=== PATIENT | female | born 1970 | race Caucasian/White ===

== ENCOUNTER 2021-10-22 01:56 | Day surgery (SDC) | payer BC, SELFPAY ==
[2021-10-06 10:29] VITALS: BMI 32.3
[2021-10-22 08:41] VITALS: BP 126/83; PULSE 97; RESP 18; TEMP 36.3; O2SAT 100
[2021-10-22] MEDS: LACTATED RINGERS 1,000 ML 150 ML IV CONT (09:06)
--- NOTE | 2021-10-22 09:20 | WPDHPUPDATE1 ---
History and Physical Update Update Date/Time: 10/22/21 09:20 Patient with vague abdominal ache that has been present for 1 year despite PPI therapy. Also with ongoing loose stools. Plan for fiber supplementation such as FiberCon 2 tabs p.o. b.i.d.. Colonoscopy an EGD will be performed to evaluate. History and Physical has been reviewed, including an updated exam of the patient. There are NO changes in the patient's condition. Risks, benefits, and alternatives have been discussed and questions answered. Patient agrees to proceed with procedure.
--- NOTE | 2021-10-22 09:32 | WPDANESEPPF ---
Anes - Initial Pre Proc Eval Procedure: Operation Date: 10/22/21 10:00 Proposed Procedures p Esophagogastroduodenoscopy & Screening Colonoscopy - Jose Lord MD Date/Time: 10/22/21 09:32 Surgeon: Jose Lord MD Pre Op Diagnosis: epigastric pain, neoplasm screening Patient Data Age: 51 Gender: F Height: 1.52 m Weight: 74 kg Last Vital Signs Temp 97.3 F L 10/22/21 08:41 Pulse 97 10/22/21 08:41 Resp 18 10/22/21 08:41 BP 126/83 10/22/21 08:41 Pulse Ox 100 10/22/21 08:41 O2 Del Method Room Air 10/22/21 08:41 Allergies Allergy/AdvReac Type Severity Reaction Status Date / Time No Known Allergies Allergy Verified 10/22/21 08:40 Home Medications Medication Instructions Recorded Confirmed Type albuterol sulfate 90 mcg/actuation 2 puff inhalation Q4H PRN 09/24/21 10/06/21 History aerosol inhaler Shortness Of Breath Or Wheezing fluticasone furoate 200 1 inh inhalation DAILY 09/24/21 10/06/21 History mcg-vilanterol 25 mcg/dose inhalation powder (Breo Ellipta) levothyroxine 50 mcg tablet 50 mcg PO DAILY 09/24/21 10/06/21 History medroxyprogesterone 10 mg tablet See Rx Instructions PO DAILY 09/24/21 10/06/21 History pantoprazole 40 mg tablet,delayed 40 mg PO QAM 09/24/21 10/06/21 History release dicyclomine 10 mg capsule 10 mg PO .Every 6 hours PRN 09/29/21 10/06/21 Rx abdominal pain #90 caps Patient hx anesthesia problems: none Family hx anesthesia problems: none Results Review: All pre-operative results and documents have been reviewed as part of the pre-operative evaluation. [facility] Past Medical History Medical History (Updated 09/29/21 @ 10:15 by Haley Jade APRN) Chronic diarrhea Nausea Surgical History Surgical History Hx of section Family History Family History Father Hypothyroid Mother Hypertension Grandparent Diabetes mellitus Social History Social History Smoking status: Never smoker Second hand tobacco smoke exposure: No Alcohol intake: current Alcohol use details: rare occasional Substance use: never Substance use type: does not use Living arrangements: with family Gender identity (if verbalized by the patient): Female Sexual Orientation (if Verbalized by the Patient): Straight or Heterosexual Spiritual care concerns: No Agree to blood products: Yes Anes - Eval Final PreProcedure Day of Procedure 10/22/21 09:32 Patient weight: overweight Heart: regular rate and rhythm Lungs: clear to auscultation Airway: Mallampati scale class II Neurological: alert and oriented Last oral intake: >/= 8 hours ASA classification: II Emergent: no Anesthetic plan: proceed Anesthesia type and monitoring: general GIVS and standard monitoring Results Review: All pre-operative results and documents have been reviewed as part of the pre-operative evaluation. Informed Consent: The patient's anesthetic plan and its attendant risks and benefits were discussed with the patient/family/POA. Questions were solicited and answers provided to the satisfaction of the patient/family/POA.
--- NOTE | 2021-10-22 10:04 | SUR.OPER ---
EGD end 956 Colonoscopy start 1003
[2021-10-22 10:17] VITALS: BP 107/58; PULSE 90; RESP 21; O2SAT 99
[2021-10-22 10:27] VITALS: BP 129/72; PULSE 77; RESP 24; O2SAT 100
[2021-10-22 10:37] VITALS: BP 121/84; PULSE 70; RESP 18; O2SAT 99
== END 2021-10-22 10:43 | disposition home or self-care (01) ==
PROVIDERS: PCP Family Medicine Adolescent Medicine; Visit Provider Internal Medicine Gastroenterology
PROC: 0DJ08ZZ Inspection of Upper Intestinal Tract, Via Natural or Artificial Opening Endoscopic (ICD-10-PCS; CPT 43235; principal; 2021-10-22 10:00)
DX: Z12.11 Encounter for screening for malignant neoplasm of colon (principal); R19.4 Change in bowel habit; K64.8 Other hemorrhoids; E06.3 Autoimmune thyroiditis; J45.909 Unspecified asthma, uncomplicated; R10.13 Epigastric pain; E03.9 Hypothyroidism, unspecified; Z79.51 Long term (current) use of inhaled steroids; K52.9 Noninfective gastroenteritis and colitis, unspecified; R11.0 Nausea; R79.89 Other specified abnormal findings of blood chemistry; E66.9 Obesity, unspecified; Z68.31 Body mass index [BMI] 31.0-31.9, adult
CPT/HCPCS: 43239; 45380; 87081; 88305; J2704; J7120

== ENCOUNTER → 2022-06-10 12:49 | Outpatient (CLI) | payer BC, SELFPAY ==
--- NOTE | ~2022-06-10 | CT_ITS ---
EXAMINATION: CTA chest PE protocol DATE: 06/10/2022 13:32 INDICATION: Shortness of breath, tachycardia, pleuritic chest pain TECHNIQUE: Computed tomography angiography (CTA) of the chest was performed with 100 mL Omnipaque-350 intravenous contrast timed to evaluate the pulmonary arteries. Coronal maximum intensity projection 3D-reconstructions were created by the technologist. Automated exposure control and iterative reconst ruction technique were employed. Exam dose: 584.30 mGy-cm total exam DLP. COMPARISON: None. FINDINGS: There is diagnostic contrast enhancement of the pulmonary arteries and no evidence of pulmo nary embolism. No thoracic aortic aneurysm or dissection. Normal heart size. No pericardial or pleural effusion. There is extensive patchy consolidation of the right upper lobe particularly the apical and posterior portions, with extensive air bronchograms. There are patchy bilateral lower lobe infiltrates, right greater than left. Normal morphology of the adrenal glands. Small sliding hiatal hernia. IMPRESSION: No evidence of pulmonary embolism Prominent right upper lobe apical and posterior consolidation and patchy bilateral lower lobe infiltr ates, suggesting bilateral pneumonia Reviewed, dictated and finalized at [facility]. Reviewed, dictated and finalized at [facility]. IMPRESSION: No evidence of pulmonary embolism Prominent right upper lobe apical and posterior consolidation and patchy bilate ral lower lobe infiltrates, suggesting bilateral pneumonia
== END ==
PROVIDERS: PCP Family Medicine Adolescent Medicine; Visit Provider Physician Assistant
DX: R07.81 Pleurodynia (principal); R00.0 Tachycardia, unspecified; R06.02 Shortness of breath; R91.8 Other nonspecific abnormal finding of lung field
CPT/HCPCS: 71275; Q9967

== ENCOUNTER 2024-03-03 07:42 | Outpatient (CLI) | payer BC, SELFPAY ==
--- NOTE | ~2024-03-03 | US_ITS ---
EXAMINATION: US abdomen limited DATE: 03/03/2024 08:11 INDICATION: Abnormal levels of other serum enzymes. TECHNIQUE: Multiple grayscale and Doppler ultrasound images of the abdomen were obtained. COMPARISON: Chest CT 06/10/2022 FINDINGS: The visualized portions of the head, body, and tail of the pancreas are normal. The liver i s normal without focal lesion. No liver surface nodularity. There is normal flow in main portal vein. The gallbladder is normal in size. No gallstones or gallbladder wall thickening. There is no sonogra phic Hoff's sign. The common duct is normal and measures 4 mm . IMPRESSION: 1. Normal right upper quadrant ultrasound. Reviewed, dictated and finalized at [facility]. [employer]
== END 2024-03-03 07:43 | disposition home or self-care (01) ==
PROVIDERS: PCP Family Medicine Adolescent Medicine; Visit Provider Family Medicine
DX: R74.8 Abnormal levels of other serum enzymes (principal)
CPT/HCPCS: 76705

== ENCOUNTER 2025-03-04 10:34 | Outpatient (CLI) | payer BC, SELFPAY ==
--- NOTE | ~2025-03-04 | MM_ITS ---
EXAMINATION: MM screening [place] BI w kj HISTORY: Screening. TECHNIQUE: Craniocaudal and mediolateral oblique 3-D tomosynthesis images were obtained and synthetic 2-D images were generated. CAD analysis was submitted and interpreted. COMPARISON: 2022 and 2021 BREAST PARENCHYMAL COMPOSITION: Not Dense: There are scattered areas of fibroglandular tissue. FINDINGS: No suspicious masses are seen. There are no suspicious calcifications. No unexplained architectural distortion is seen. There are no skin or nipple abnormalities identified. There is no adenopathy seen on the images submitted. IMPRESSION: No mammographic evidence to suggest malignancy is seen. The patient may return to screening mammography as per ACR guidelines. BI-RADS 1 - Negative. Reviewed, dictated and finalized at location [facility]. GER
== END 2025-03-04 10:35 | disposition home or self-care (01) ==
PROVIDERS: PCP Family Medicine; Visit Provider Family Medicine
DX: Z12.31 Encounter for screening mammogram for malignant neoplasm of breast (principal)
CPT/HCPCS: 77063; 77067